=== PATIENT | male | born 1970 | race Caucasian/White ===

== ENCOUNTER 2024-01-23 10:17 | Emergency (ER) | payer BC, OTHER ==
[2024-01-23] MEDS: Acetaminophen 500 MG Tab PO ONE (11:53)
[2024-01-23] MEDS: Ibuprofen 200 MG Tab PO ONE (11:56)
== END 2024-01-23 12:05 | disposition home or self-care (01) ==
LOC: LL.ED 10:17
DX: S99.911A Unspecified injury of right ankle, initial encounter (principal); R03.0 Elevated blood-pressure reading, without diagnosis of hypertension; Z88.0 Allergy status to penicillin; X50.1XXA Overexertion from prolonged static or awkward postures, initial encounter; Y93.89 Activity, other specified; Y99.0 Civilian activity done for income or pay
CPT/HCPCS: 73610-RT; 99283; A9270-GY